=== PATIENT | female | born 1990 | race Two or more races ===

== ENCOUNTER 2025-05-18 09:28 | Emergency (ER) | payer BC ==
[~2025-05-18] VITALS: Ht 165.1 cm; Wt 64.4 kg
[2025-05-18 09:54] VITALS: TEMP 98.2
[2025-05-18 10:22] LABS: APPEARANCE,URINE CLEAR (CLEAR); BLOOD, URINE NEGATIVE Ery/uL (NEGATIVE); LEUKOCYTE ESTERASE ,URINE NEGATIVE (NEGATIVE); NITRITE, URINE NEGATIVE (NEGATIVE); UGLUCOSE NEGATIVE (NEGATIVE)
[2025-05-18 10:25] LABS: PLATELET COUNT (AUTO) 194 K/uL (150-450); RED BLOOD CELL COUNT(AUTO) 4.44 MIL/uL (4.0-5.2); RED CELL DISTRIBUTION WIDTH 16.9 % (11.5-15.0); WHITE BLOOD COUNT (AUTO) 2.9 K/uL (4.3-11.0)
[2025-05-18 10:31] LABS: CALCIUM, SERUM 8.5 mg/dL (8.5-10.1); CREATININE 0.6 mg/dL (0.6-1.3); SODIUM SERUM 139 mmol/L (136-145); UREA NITROGEN, BLOOD 8 mg/dL (7-18)
[2025-05-18 10:37] LABS: ALCOHOL, BLOOD < 3 mg/dL (0-10); ASPARTATE AMINOTRANSFERASE 39 U/L (15-37); TOTAL PROTEIN, SERUM 7.0 g/dL (6.4-8.2)
[2025-05-18 10:38] LABS: ADD URINE CULTURE YES
[2025-05-18 10:40] LABS: AMPHETAMINE, URINE NEGATIVE (NEGATIVE); BARBITURATE, URINE POSITIVE (NEGATIVE); BENZODIAZEPINE, URINE POSITIVE (NEGATIVE); CANNABINOID, URINE NEGATIVE (NEGATIVE); COCCAINE, URINE POSITIVE (NEGATIVE); OPIATE, URINE POSITIVE (NEGATIVE)
[2025-05-18] MEDS ORDERED: NALO4SPR BNOSTRILS (11:14)
[2025-05-18] MEDS ORDERED: POTASSIUM CHLORIDE 20 MEQ TAB.PRT.SR PO ONE (11:16)
[2025-05-18] MEDS: IV NS 0.9% 1,000 ML BAG IV ONE (11:20)
[2025-05-18] MEDS ORDERED: NALOXONE PREFILLED SYRINGE 2 MG/2 ML SYRINGE ONE (13:06)
[2025-05-18] MEDS: NALOXONE HCL 0.4 MG/ML AMPUL IV ONE (13:15)
[2025-05-18] MEDS: POTASSIUM CHLORIDE 20 MEQ TAB.PRT.SR PO ONE (17:20)
[2025-05-18 18:54] VITALS: BP 119/70; O2SAT 98
== END 2025-05-18 18:55 | disposition home or self-care (01) ==
LOC: ER 09:52
DX: Z00.00 Encounter for general adult medical examination without abnormal findings (principal); F19.20 Other psychoactive substance dependence, uncomplicated; F14.10 Cocaine abuse, uncomplicated; F13.10 Sedative, hypnotic or anxiolytic abuse, uncomplicated; F11.10 Opioid abuse, uncomplicated; D72.819 Decreased white blood cell count, unspecified; E87.6 Hypokalemia; Z88.2 Allergy status to sulfonamides
CPT/HCPCS: 99285; 96374; 96361; 85025; 80048; 80076; 81001; 36415; 80143; 80320; 80307; J7030; J2312; 87086-TC; G0480